=== PATIENT | female | born 1945 | race Caucasian/White ===

== ENCOUNTER 2017-08-01 19:52 | Emergency (ER) | payer MEDICARE, MEDICAID ==
--- NOTE | 2017-08-01 22:02 | ER Document Report ---
ED General - General Chief Complaint: Cough Stated Complaint: COUGH Time Seen by Provider: 08/01/17 22:01 Notes: Patient is a pleasant 72-year-old female with a history of COPD who presents with complaint of coughing. She says she been coughing a lot over the last couple days. She does continue to smoke. She said no fevers. No chest pain. No vomiting. No diarrhea. She says in the past she has developed some pneumonia and therefore she will make sure that she is not any worse. She says she felt some wheezing earlier but says she has felt much improved since arriving to the ER. She recently moved to the area. She sees a nurse practitioner in [place] as her primary care doctor. She is on Lasix. She says she has maybe noticed a slight increase in edema in her lower extremities over last several weeks. Only other complaint is that she has had mild headache or rights of her head. She says she has a pain intermittently comes and goes on the right temporal area. She says is been there since he fell and hit her head over 2 months ago. The only blood thinner she takes is aspirin. She has had no focal weakness or numbness. 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 She says her pupils chronically constricted in the right eye and this is unchanged. No other fall since then. TRAVEL OUTSIDE OF THE [place] IN LAST 30 DAYS: No - Related Data Allergies/Adverse Reactions: propoxyphene [From Darvon] Allergy (Verified 08/01/17 19:59) Past Medical History - Social History Smoking Status: Current Every Day Smoker Chew tobacco use (# tins/day): No Frequency of alcohol use: None Drug Abuse: None Family History: Reviewed & Not Pertinent Patient has suicidal ideation: No Patient has homicidal ideation: No Renal/ Medical History: Denies: Hx Peritoneal Dialysis Review of Systems - Review of Systems Notes: My Normal Review Basic REVIEW OF SYSTEMS: CONSTITUTIONAL : Denies fever, chills, or sweats. Denies recent illness. EENT: Nasal congestion. CARDIOVASCULAR: Denies chest pain. RESPIRATORY: Coughing and shortness of breath. GASTROINTESTINAL: Denies abdominal pain. Denies nausea, vomiting, or diarrhea. Denies constipation. Last BM: MUSCULOSKELETAL: Denies neck or back pain or joint pain or swelling. SKIN: Denies rash or skin lesions. NEUROLOGICAL: Denies altered mental status or loss of consciousness. Intermittent headache. Denies weakness or paralysis or loss of use of either side. Denies problems with gait or speech. Denies sensory or motor loss. ALL OTHER SYSTEMS REVIEWED AND NEGATIVE. Physical Exam - Vital signs Vitals: Temp Pulse Resp BP Pulse Ox 97.7 F 68 20 108/56 L 92 08/01/17 20:11 08/01/17 20:11 08/01/17 20:11 08/01/17 20:11 08/01/17 20:11 - Notes Notes: General Appearance: Well nourished, alert, cooperative, no acute distress, no obvious discomfort. Lung thompson are completely clear. Vitals: reviewed, See vital signs table. Head: no swelling or tenderness to the head Eyes: PERRL, EOMI, Conjuctiva clear Mouth: No decreasd moisture Nose: Nasal congestion. Lungs: No wheezing, No rales, No rhonci, No accessory muscle use, good air exchange bilaterally. Heart: Normal rate, Regular rythm, No murmur, no rub Abdomen: Normal BS, soft, No rigidity, No abdominal tenderness, No guarding, no rebound, no abdominal masses, no organomegaly Extremities: strength 5/5 in all extremities, good pulses in all extremities, no swelling or tenderness in the extremities, no edema. Skin: warm, dry, appropriate color, no rash Neuro: speech clear, oriented x 3, normal affect, responds appropriately to questions. Cranial nerves II through XII are intact. Distal sensation intact. Patient moves all extremities without difficulty. Gait was not tested because patient has a baseline gait disturbance and walks with a cane. Course - Re-evaluation Re-evalutation: 08/01/17 23:31 Patient's lung thompson are clear. She does have some recurrent cough on exam consistent with bronchitis especially with a history of smoking. Told her that quitting smoking would be beneficial to her health. Also place her on prednisone. I am only to 30 mg a day being the patient is a borderline diabetic. And do not want her blood sugar to increase too much. I did obtain chest x-ray which is negative for pneumonia. Patient did mention that she has some small amount of edema in her lower extremities. I noticed only very trace edema patient is already on Lasix and therefore will not adjust this as appears to be working appropriately. Patient says she can still see her primary care doctor in [place] but does request and fell on local primary care doctors now that she has moved to the area. I have provided her a list of local primary care doctors. She also mentioned that she has mild intermittent headache. She says she first noticed it after she hit her head 2 months ago. I did talked her length about CT scan. I informed her that we could obtain a CT scan however it would likely just give her large amount of radiation without really changing her management. I informed her that would be highly unlikely that she had a continued worsening bleed for 2 months as she should have some form of neurologic symptoms other than a mild intermittent headache. Informed her there is always chance she could have had a small initial subdural but this was would not require any type of intervention at this time. Patient says at this time she does not want a CT scan of her head and would come back if she had worsening headaches or had any further concerns. I strongly encouraged her return to ER immediately if she has difficulty breathing, fevers, vomiting, or she feels unwell. Dictation of this chart was performed using voice recognition software; therefore, there may be some unintended grammatical errors. 08/01/17 23:35 - Vital Signs Vital signs: Temp Pulse Resp BP Pulse Ox 97.7 F 68 20 108/56 L 92 08/01/17 20:11 08/01/17 20:11 08/01/17 20:11 08/01/17 20:11 08/01/17 20:11 - Laboratory Laboratory results interpreted by me: 08/01/17 22:31 POC Glucose 140 H - EKG Interpretation by Me Additional EKG results interpreted by me: 08/01/17 22:01 EKG is reviewed and interpreted by me. EKG shows sinus rhythm with rate [address] segment elevation or depression. Patient does have right bundle branch block. Her interval, QTc intervals are within normal range. QRS duration is prolonged. No old EKG available for comparison. 08/01/17 22:02 Discharge - Discharge Clinical Impression: Bronchitis Condition: Stable Disposition: HOME, SELF-CARE Instructions: Family Physicians / Practices Additional Instructions: Please. use the albuterol inhaler as 2 puffs as needed for wheezing not to exceed 2 puffs every 2 hours. Please take the Prednisone as prescribed. It can sometimes cause an increase in blood sugar. Please check your blood sugar or return to the ER if you have increased urination, vomiting, or feel unwell. please follow up with your doctor in 2 days. I have also included a list of local doctors so you can find a primary care doctor who is closer to you. please return tot he ER if you have fevers, recurrent wheezing despite the inhaler, worsening difficulty breathing, chest pain, or if you feel that you are worsening. Please quit smoking. Prescriptions: Prednisone 30 mg PO DAILY #9 tablet Referrals: SAVITA WOOTEN PA-C [Primary Care Provider] - 08/03/17
--- NOTE | 2017-08-01 23:13 | RADIOLOGY REPORT (SQ) ---
EXAM DESCRIPTION: CHEST PA/LAT CLINICAL HISTORY: 72 years, Female, cough COMPARISON: None. NUMBER OF VIEWS: Two LIMITATIONS: None. FINDINGS: Increased lung volume, mildly enlarged cardiac silhouette, atherosclerosis, small deformity of a right seventh posterior rib consistent with old injury, and mild osteoarthritis. IMPRESSION: Mild cardiac enlargement.
[2017-08-01] MEDS ORDERED: PREDNISONE 20 MG TABLET PO ONE (23:20)
[2017-08-01] MEDS ORDERED: ALBUTEROL SULFATE HFA (90 MCG/PUFF) 8 GM MDI (1 MDI/ER DISP) IH ONE (23:26)
[2017-08-01 23:39] VITALS: BP 118/79
--- NOTE | 2017-08-02 07:25 | EKG REPORT ---
SEVERITY:- ABNORMAL ECG - SINUS RHYTHM RIGHT BUNDLE BRANCH BLOCK : Confirmed by: Zoran Mcpherson MD 02-Aug-2017 07:24:40
== END 2017-08-01 23:38 | disposition home or self-care (01) ==
LOC: ER 19:52
DX: J40 Bronchitis, not specified as acute or chronic (principal); F17.200 Nicotine dependence, unspecified, uncomplicated; Z79.82 Long term (current) use of aspirin
CPT/HCPCS: 93005; 99284; 82962; 71046; 93010; A9270; J3490; J7512

== ENCOUNTER → 2017-08-28 | Outpatient (CLI) | payer MEDICARE, MEDICAID ==
--- NOTE | 2017-08-28 14:30 | RADIOLOGY REPORT (SQ) ---
EXAM DESCRIPTION: CAROTID DOPPLER COMPLETED DATE/TIME: 08/28/2017 1:09 pm REASON FOR STUDY: AMAUROSIS FUGAX G45.3 AMAUROSIS FUGAX COMPARISON: None. TECHNIQUE: Grayscale ultrasound, Doppler velocity and spectra, and color Doppler images acquired of the extra-cranial carotid and vertebral arteries. Images stored on PACS. LIMITATIONS: None. FINDINGS: RIGHT CAROTID CCA Velocities: Within normal limits. ICA Velocities Peak systolic 0.69 m/s. End diastolic 0.18 m/s. Proximal ICA/CCA peak systolic ratio 0.7. Spectra normal. No significant plaque. LEFT CAROTID CCA Velocities: Within normal limits. ICA Velocities Peak systolic 0.69 m/s. End diastolic 0.25 m/s. Proximal ICA/CCA peak systolic ratio 0.7. Spectra normal. No significant plaque. VERTEBRAL ARTERIES: Antegrade flow. Normal waveforms. SUBCLAVIAN ARTERIES: Not evaluated OTHER: No other significant finding. IMPRESSION: NO HEMODYNAMICALLY SIGNIFICANT STENOSIS. COMMENT: Quality ID #[id number]: Velocity criteria are extrapolated from the diameter data as defined by t he Society of Radiologists in Ultrasound Consensus Conference. Radiology 2003: 229; 340-346. TECHNICAL DOCUMENTATION: JOB ID: [id number] [employer]- All Rights Reserved Reading location - IP/workstation name: [email or web address]
== END ==
LOC: SP 10:12
PROVIDERS: ATTEND Ophthalmology
DX: G45.3 Amaurosis fugax (principal)
CPT/HCPCS: 93880

== ENCOUNTER 2017-12-14 12:22 | Emergency (ER) | payer MEDICARE, MEDICAID ==
--- NOTE | 2017-12-14 13:54 | ER Document Report ---
ED General - General Chief Complaint: Choked/Choking Stated Complaint: SHORTNESS OF BREATH Time Seen by Provider: 12/14/17 12:59 Notes: 72-year-old female patient to the emergency department chief complaint of choking. States that she frequently gets meat boluses stuck. Had some steak today and felt like it got stuck. Was eventually able to relieve the pain. Feels back to normal at this time but still has a little bit of residual problem. Has not had this worked up. Denies any other major symptoms at this time. Did not pass out. Did not become hypoxic. TRAVEL OUTSIDE OF THE [place] IN LAST 30 DAYS: No - HPI Onset: Just prior to arrival Onset/Duration: Better - Related Data Allergies/Adverse Reactions: propoxyphene [From Darvon] Allergy (Verified 08/01/17 19:59) Past Medical History - General Information source: Patient - Social History Smoking Status: Current Every Day Smoker Chew tobacco use (# tins/day): No Smoking Education Provided: Yes Drug Abuse: None Family History: Reviewed & Not Pertinent Patient has suicidal ideation: No Patient has homicidal ideation: No - Medical History Notes: Bronchitis Renal/ Medical History: Denies: Hx Peritoneal Dialysis Review of Systems - Review of Systems Constitutional: No symptoms reported EENT: No symptoms reported Cardiovascular: No symptoms reported Respiratory: No symptoms reported Gastrointestinal: See HPI. denies: Abdominal pain, Nausea, Vomiting Genitourinary: No symptoms reported Female Genitourinary: No symptoms reported Musculoskeletal: No symptoms reported Skin: No symptoms reported Hematologic/Lymphatic: No symptoms reported Neurological/Psychological: No symptoms reported Physical Exam - Vital signs Vitals: Temp Pulse Resp BP Pulse Ox 98.0 F 71 18 129/75 H 98 12/14/17 12:36 12/14/17 12:36 12/14/17 12:36 12/14/17 12:36 12/14/17 12:36 Interpretation: Normal - General General appearance: Appears well, Alert - HEENT Head: Normocephalic, Atraumatic Eyes: Normal Pupils: PERRL - Respiratory Respiratory status: No respiratory distress Chest status: Nontender Breath sounds: Normal Chest palpation: Normal - Cardiovascular Rhythm: Regular Heart sounds: Normal auscultation Murmur: No - Abdominal Inspection: Normal Distension: No distension Bowel sounds: Normal Tenderness: Nontender Organomegaly: No organomegaly - Back Back: Normal, Nontender - Extremities General upper extremity: Normal inspection, Nontender, Normal color, Normal ROM , Normal temperature General lower extremity: Normal inspection, Nontender, Normal color, Normal ROM , Normal temperature, Normal weight bearing. No: Navneet's sign - Neurological Neuro grossly intact: Yes Cognition: Normal Orientation: AAOx4 Hamilton Coma Scale Eye Opening: Spontaneous Hamilton Coma Scale Verbal: Oriented Geovani Coma Scale Motor: Obeys Commands Geovani Coma Scale Total: 15 Speech: Normal Motor strength normal: LUE, RUE, LLE, RLE Sensory: Normal - Psychological Associated symptoms: Normal affect, Normal mood - Skin Skin Temperature: Warm Skin Moisture: Dry Skin Color: Normal Course - Re-evaluation Re-evalutation: 12/14/17 15:13 Barium swallow fairly unremarkable. Small hiatal hernia otherwise negative. Will DC at this time. 12/14/17 15:15 Esophagus X-Ray 12/14/17 13:13 IMPRESSION: TINY HIATAL HERNIA WITH PROMINENT GASTROESOPHAGEAL REFLUX. OTHERWISE UNREMARKABLE STUDY. - Vital Signs Vital signs: Temp Pulse Resp BP Pulse Ox 98.0 F 71 18 129/75 H 98 12/14/17 12:36 12/14/17 12:36 12/14/17 12:36 12/14/17 12:36 12/14/17 12:36 Discharge - Discharge Clinical Impression: Gastroesophageal reflux Qualifiers: Esophagitis presence: without esophagitis Qualified Code(s): K21.9 - Gastro- esophageal reflux disease without esophagitis Condition: Good Disposition: HOME, SELF-CARE Instructions: Reflux Disease (GERD) ([facility]) Additional Instructions: Please follow-up with your regular doctor. You may need an upper endoscopy with media technician or general surgeon. If you continue to have these symptoms please make an appointment. If things get worse we are always here. Do not hesitate to return if symptoms get worse. Referrals: CAROLS ALMAZAN, DO [Primary Care Provider] - Follow up as needed
--- NOTE | 2017-12-14 15:12 | RADIOLOGY REPORT (SQ) ---
EXAM DESCRIPTION: BARIUM SWALLOW ESOPHAGUS COMPLETED DATE/TIME: 12/14/2017 2:20 pm REASON FOR STUDY: esophageal pain after eating COMPARISON: None. TECHNIQUE: Under fluoroscopic guidance, patient ingested effervescent granules followed by thick and thin barium. Fluoroscopic spot images and routine radiographic images acquired and stored on PACS. 12 MM BARIUM TABLET GIVEN: The patient swallowed a 12 mm barium tablet which passed easily through th e esophagus into the stomach without delay. LIMITATIONS: None. FLUOROSCOPY TIME: FLUORO TIME: 2.2 minutes 7 images saved to PACS. FINDINGS: NEUROMUSCULAR COORDINATION OF SWALLOW: Normal. No aspiration. ESOPHAGEAL MOTILITY: Normal peristalsis. No esophageal spasm. ESOPHAGEAL MUCOSA: Normal mucosa without masses or ulceration. GASTRO-ESOPHAGEAL JUNCTION: There is a tiny hiatal hernia present. Prominent gastroesophageal reflux was demonstrated. NON-GI TRACT STRUCTURES: No significant finding. OTHER: No other significant finding. IMPRESSION: TINY HIATAL HERNIA WITH PROMINENT GASTROESOPHAGEAL REFLUX. OTHERWISE UNREMARKABLE STUDY . RECOMMENDATION: NONE COMMENT: NONE Quality ID [id number]: Final reports for procedures using fluoroscopy that document radiation exposure damian mikey, or exposure time and number of fluorographic images (if radiation exposure indices are not avail able) TECHNICAL DOCUMENTATION: JOB ID: [id number] [employer]- All Rights Reserved Reading location - IP/workstation name: [email or web address]
[2017-12-14 16:06] VITALS: BP 142/83
== END 2017-12-14 16:06 | disposition home or self-care (01) ==
LOC: ER 12:22
DX: K21.9 Gastro-esophageal reflux disease without esophagitis (principal); K44.9 Diaphragmatic hernia without obstruction or gangrene; F17.200 Nicotine dependence, unspecified, uncomplicated; Z88.5 Allergy status to narcotic agent
CPT/HCPCS: 74220; 99284